=== PATIENT | male | born 1995 | race Caucasian/White ===

== ENCOUNTER 2017-08-06 23:11 | Emergency (ER) | payer OTHER ==
[2017-08-06 23:34] VITALS: BP 133/79
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
== END 2017-08-07 00:10 | disposition home or self-care (01) ==
LOC: CED 23:11
DX: S90.32XA Contusion of left foot, initial encounter (principal); S60.521A Blister (nonthermal) of right hand, initial encounter; W22.8XXA Striking against or struck by other objects, initial encounter
CPT/HCPCS: 73630-PO